=== PATIENT | female | born 1965 | race Hispanic/Latino ===

== ENCOUNTER 2021-10-19 17:38 | Emergency (ER) | payer SELFPAY ==
[~2021-10-19] VITALS: Ht 157.5 cm; Wt 64.4 kg
[2021-10-19] MEDS ORDERED: ACETAMINOPHEN WITH CODEINE 1 TAB TAB PO ONE (19:30)
[2021-10-19] MEDS ORDERED: IBUPROFEN 600 MG TABLET PO ONE (19:30)
[2021-10-19] MEDS ORDERED: ORPH100 PO (19:47)
[2021-10-19] MEDS ORDERED: IBUP-2070 PO (19:47)
[2021-10-19 20:01] VITALS: BP 135/74
== END 2021-10-19 20:03 | disposition home or self-care (01) ==
LOC: EDH 17:38
DX: S20.212A Contusion of left front wall of thorax, initial encounter (principal); E11.9 Type 2 diabetes mellitus without complications; E78.00 Pure hypercholesterolemia, unspecified; I10 Essential (primary) hypertension; Z79.1 Long term (current) use of non-steroidal anti-inflammatories (NSAID); W01.0XXA Fall on same level from slipping, tripping and stumbling without subsequent striking against object, initial encounter; Y93.89 Activity, other specified; Y92.89 Other specified places as the place of occurrence of the external cause; Y99.8 Other external cause status
CPT/HCPCS: 71101